=== PATIENT | female | born 1980 | race Caucasian/White ===

== ENCOUNTER 2018-02-05 07:28 | Inpatient (IN) | payer MEDICAID ==
[~2018-02-05] VITALS: Ht 157.5 cm; Wt 67.3 kg
[2018-03-26] VITALS (20 sets, daily range): BP systolic 82–132; BP diastolic 42–73; PULSE 61–92; TEMP 97–98.2
[2018-03-26 06:11] LABS: BASO # 0.1 (0.0-0.2); BASO % 0.6 % (0.0-2.0); EOS # 0.2 (0.0-0.7); EOS % 2.2 % (0-4.0); GRAN # 4.8 (1.4-6.5); GRAN % 48.7 % (42.2-75.2); HEMOGLOBIN 11.8 g/dl (12.5-16.0); LYMPH # 3.7 (1.2-3.4); LYMPH % 37.9 % (20.0-51.0); MEAN CELL VOLUME 91 fl (80.0-100.0); MEAN CORPUSCULAR HEMOGLOBIN 31 pg (27.0-31.0); MEAN CORPUSCULAR HGB CONC 34 g/dl (33.0-37.0); MONO % 10.2 % (1.7-9.3); PLATELET COUNT 268 K/mm3 (130-400); RED BLOOD COUNT 3.83 M/mm3 (4.10-5.30); REDCELL DISTRIBUTION WIDTH-CV 13.7 % (11.5-14.5)
[2018-03-26 06:12] LABS: HEMATOCRIT 34.7 % (37.0-47.0)
[2018-03-26] MEDS ORDERED: PRENATAL (06:25)
[2018-03-26] MEDS ORDERED: PEPCID AC20 MG PO (06:25)
[2018-03-26] MEDS ORDERED: MOTRIN 800800 MG/TAB PO (08:33)
[2018-03-26] MEDS ORDERED: PERCOCET 325 MG1 TA2 PO (08:33)
[2018-03-27] VITALS: BP 82/50; PULSE 62; TEMP 97.4
[2018-03-27 07:00] VITALS: BP 91/49; PULSE 74; TEMP 97.9
[2018-03-27 16:00] VITALS: BP 99/51; PULSE 61; TEMP 98.1
[2018-03-28 03:32] VITALS: BP 90/56; PULSE 63; TEMP 97.7
[2018-03-28 10:00] VITALS: BP 100/56; PULSE 82; TEMP 97.8
[2018-03-28 17:15] VITALS: BP 99/58; PULSE 79; TEMP 98.2
[2018-03-28 21:10] VITALS: BP 103/62; PULSE 77; TEMP 97.9
[2018-03-29 08:30] VITALS: BP 91/55; PULSE 70; TEMP 98
[2018-03-29 12:00] VITALS: BP 95/56; PULSE 74; TEMP 98.4
== END 2018-03-29 14:20 | disposition home or self-care (01) | DRG 785 ==
LOC: OB 03-26 05:26 → LDR 03-26 07:28 → OB 03-29 14:20
PROVIDERS: Obstetrics & Gynecology
PROC: 10D00Z1 Extraction of Products of Conception, Low, Open Approach (ICD-10-PCS; principal; 2018-03-26)
PROC: 0UT70ZZ Resection of Bilateral Fallopian Tubes, Open Approach (ICD-10-PCS; 2018-03-26)
DX: O34.211 Maternal care for low transverse scar from previous cesarean delivery (principal); Z3A.39 39 weeks gestation of pregnancy; Z37.0 Single live birth; Z40.03 Encounter for prophylactic removal of fallopian tube(s); O99.02 Anemia complicating childbirth; O26.893 Other specified pregnancy related conditions, third trimester; Z67.11 Type A blood, Rh negative; Z28.21 Immunization not carried out because of patient refusal; O99.824 Streptococcus B carrier state complicating childbirth; M41.9 Scoliosis, unspecified
CPT/HCPCS: J0690; J1885; J2175; J2370; J2405; J2590; J2791; J3010; J7120